=== PATIENT | male | born 1980 | race Caucasian/White ===

== ENCOUNTER 2016-04-05 14:22 | Emergency (ER) | payer OTHER | END 2016-04-05 16:11 | disposition left against medical advice (07) | LOC: ER 14:22 | DX: Z53.21 Procedure and treatment not carried out due to patient leaving prior to being seen by health care provider (principal) ==

== ENCOUNTER 2016-05-18 12:06 | Emergency (ER) | payer OTHER ==
[2016-05-18] MEDS ORDERED: ASPIRIN 81 MG TABLET, CHEWABLE PO ONE (12:22)
--- NOTE | 2016-05-18 12:22 | ER Document Report ---
ED Medical Screen (RME) - General Stated Complaint: CHEST PAIN,LEFT ARM PAIN,DIZZY Time seen by provider: 12:20 Mode of Arrival: Wheelchair Information source: Patient Notes: 35-year-old smoker, nondiabetic, nonhypertensive, non-hyperlipidemic non-drugs, coronary artery disease in family in the 40s, male developed posterior left upper arm pain 45 minutes ago and then progressed to left mid axillary line to left middle chest. Episodes of pain last a few seconds. It is been intermittent. I have greeted and performed a rapid initial assessment of this patient. A comprehensive ED assessment, evaluation of the patient, analysis of test results , and completion of the medical decision making process will be conducted by additional ED providers. TRAVEL OUTSIDE OF THE [place] IN LAST 30 DAYS: No - Related Data Allergies/Adverse Reactions: ibuprofen [From Motrin] Adverse Reaction (Verified 05/18/16 12:20) Past Medical History - Immunizations Hx Diphtheria, Pertussis, Tetanus Vaccination: Yes
[2016-05-18 13:22] LABS: ABSOLUTE BASOPHILS # (AUTO) 0.1 10^3/uL (0.0-0.2); ABSOLUTE EOSINOPHILS # (AUTO) 0.4 10^3/uL (0.0-0.6); ABSOLUTE LYMPHOCYTES (AUTO) 3.1 10^3/uL (0.5-4.7); ABSOLUTE MONOCYTES (AUTO) 0.4 10^3/uL (0.1-1.4); ABSOLUTE NEUT (AUTO) 6.1 10^3/uL (1.7-8.2); BASOPHILS % (AUTO) 0.6 % (0-2); EOSINOPHILS % (AUTO) 3.8 % (0-6); HEMATOCRIT 42.2 % (37.9-51.0); HEMOGLOBIN 14.7 g/dL (13.5-17.0); HGB HCT DIFFERENCE 1.9; MEAN CORPUSCULAR HGB CONC 34.7 g/dL (32.0-36.0); MEAN CORPUSCULAR VOLUME 95 fl (80-97); MONOCYTES % (AUTO) 3.6 % (3-13); RED BLOOD COUNT 4.45 10^6/uL (4.35-5.55); RED CELL DISTRIBUTION WIDTH 12.5 % (11.5-14.0); WHITE BLOOD COUNT 10.1 10^3/uL (4.0-10.5)
[2016-05-18 13:35] LABS: URINE BARBITURATES SCREEN NEGATIVE; URINE METHADONE SCREEN NEGATIVE; URINE OPIATES LOW NEGATIVE; URINE PHENCYCLIDINE SCREEN NEGATIVE
[2016-05-18 13:43] LABS: ALANINE AMINOTRANSFERASE 28 U/L (21-72); ALBUMIN 4.8 g/dL (3.5-5.0); ALKALINE PHOSPHATASE 50 U/L (38-126); ANION GAP 13 (5-19); ASPARTATE AMINO TRANSFERASE 26 U/L (17-59); BILIRUBIN,TOTAL 0.4 mg/dL (0.2-1.3); BLOOD UREA NITROGEN 10 mg/dL (7-20); CALCIUM 10.2 mg/dL (8.4-10.2); CARBON DIOXIDE 27 mmol/L (22-30); CHLORIDE 101 mmol/L (98-107); CREATINE KINASE 99 U/L (55-170); CREATININE RESULT 0.89 mg/dL (0.52-1.25); GLUCOSE 83 mg/dL (75-110); POTASSIUM 4.5 mmol/L (3.6-5.0); SODIUM 140.6 mmol/L (137-145); TOTAL PROTEIN 7.3 g/dL (6.3-8.2)
[2016-05-18 13:57] LABS: CREATINE KINASE MB 0.83 ng/mL (<4.55)
[2016-05-18 14:00] LABS: TROPONIN I < 0.012 ng/mL
--- NOTE | 2016-05-18 16:02 | ER Document Report ---
ED Cardiac - General Chief Complaint: Chest Pain > 30 Stated Complaint: CHEST PAIN,LEFT ARM PAIN,DIZZY Mode of Arrival: Wheelchair Information source: Patient Notes: 35-year-old male who presents today with the onset around 11:15 while installing a house of feeling some pain to his left tricep that radiated initially down his left arm and then into his left chest. He denies any nausea , vomiting, diaphoresis, calf pain or leg swelling, recent trips or travel. He states some mild pain when he takes a deep breath. He denies any shortness of breath. TRAVEL OUTSIDE OF THE [place] IN LAST 30 DAYS: No - HPI Patient complains to provider of: Other - See above Was the onset of pain: Sudden Is the pain a: New problem Chest pain location: Other - See above Quality of pain: Dull Chest pain radiation location: None - See above Severity now: None Severity at worst: Mild Pain level currently: Denies Associated symptoms: Other - See above Exacerbated by: Denies Relieved by: Nothing - Related Data Allergies/Adverse Reactions: ibuprofen [From Motrin] Adverse Reaction (Verified 05/18/16 12:20) Past Medical History - General Information source: Patient - Social History Smoking Status: Unknown if Ever Smoked Cigarette use (# per day): No Chew tobacco use (# tins/day): No Smoking Education Provided: No Drug Abuse: None Family History: Reviewed & Not Pertinent Patient has suicidal ideation: No Patient has homicidal ideation: No Renal/ Medical History: Denies: Hx Peritoneal Dialysis - Immunizations Hx Diphtheria, Pertussis, Tetanus Vaccination: Yes Review of Systems - Review of Systems Constitutional: denies: Fever EENT: denies: Eye discharge, Nose congestion, Nose discharge Cardiovascular: denies: Palpitations, Syncope Respiratory: denies: Cough, Short of breath Gastrointestinal: denies: Abdominal pain, Vomiting Genitourinary: denies: Dysuria Musculoskeletal: denies: Leg swelling Skin: Other - no hives. denies: Rash Neurological/Psychological: Other - no slurred speech -: Yes All other systems reviewed and negative Physical Exam - Vital signs Vitals: Pulse Ox 99 05/18/16 16:40 Notes: Reviewed vital signs and nursing note as charted by RN. CONSTITUTIONAL: Alert and oriented and responds appropriately to questions. Well -appearing; well-nourished HEAD: Normocephalic; atraumatic CARD: Regular rate and rhythm; no murmurs, no clicks, no rubs, no gallops; symmetric distal pulses RESP: Normal chest excursion without splinting or tachypnea; tenderness to palpation of the left lateral chest with no swelling, crepitus, or erythema; breath sounds clear and equal bilaterally; no wheezes, no rhonchi, no rales ABD/GI: Normal bowel sounds; non-distended; soft, non-tender, no rebound, no guarding; no palpable organomegaly or masses BACK: The back appears normal and is non-tender to palpation, there is no CVA tenderness EXT: Normal ROM in all joints; patient has some mild tenderness without swelling , erythema, or deformity to the left tricep. Full 5 out of 5 strength. Neurovascular intact distally. SKIN: Normal color for age and race; warm; dry; good turgor; capillary refill < 2 seconds; no acute lesions noted NEURO: Moves all extremities equally; Motor and sensory function intact PSYCH: The patient's mood and manner are appropriate. Grooming and personal hygiene are appropriate. Course - Re-evaluation Re-evalutation: Given the history and physical examination we will obtain a cardiac evaluation including an EKG and an x-ray of the chest. Patient has family cardiac history of father having a heart attack supposedly in the mid 40s. EKG shows a heart of 78, normal sinus rhythm, normal axis, minimal ST elevation less than 1 mm consistent with J-point elevation in leads aVF. 05/18/16 16:00 Chest x-ray shows normal heart, normal mediastinum, no fractures, normal lung hooker, no pneumothorax. Given patients H&P, vital signs, and clinical picture, I do not believe Aortic dissection or pulmonary emboli is likely at this time. 05/18/16 17:21 Repeat troponin is negative. No change in exam. Vital signs stable. Patient will be discharged home with strict return precautions and follow-up. - Vital Signs Vital signs: Temp Pulse Resp BP Pulse Ox 20 99 05/18/16 16:41 05/18/16 16:40 - Laboratory Result Diagrams: 05/18/16 12:45 05/18/16 12:45 Discharge - Discharge Clinical Impression: Atypical chest pain Condition: Good Disposition: HOME, SELF-CARE Additional Instructions: Come back immediately with any return of pain, change in location or quality of pain, fevers, calf pain or leg swelling, fever, shortness of breath, or any other acute problems. Please follow-up with your primary doctor as we have discussed.
[2016-05-18 17:50] VITALS: BP 111/70
--- NOTE | 2016-05-18 20:48 | EKG REPORT ---
SEVERITY:- BORDERLINE ECG - SINUS RHYTHM BORDERLINE RIGHT AXIS DEVIATION BORDERLINE INFERIOR Q WAVES ST ELEV, PROBABLE NORMAL EARLY REPOL PATTERN : Confirmed by: Amy Krause 18-May-2016 20:47:45
== END 2016-05-18 17:56 | disposition home or self-care (01) ==
LOC: ER 12:06
DX: R07.89 Other chest pain (principal); M79.602 Pain in left arm; R42 Dizziness and giddiness; Z88.6 Allergy status to analgesic agent
CPT/HCPCS: 36415; 71010; 80053; 80307; 82550; 82553; 84484; 85025; 93005; 93010; 99285